=== PATIENT | female | born 1930 | race Caucasian/White ===

== ENCOUNTER → 2018-05-24 | Outpatient (CLI) | payer MEDICARE, OTHER ==
[~2018-05-24] MED LIST: AMBIEN 5 MG TABL5 M1 PO; ASPIRIN EC81 M1 PO; FISH OIL 1,0001 EAC5 PO; ISOSORBIDE DINI30 MG PO; LEVOTHROID88 MCG PO; LOPRESSOR PO; METFORMIN PO; NEURONTIN 300M300 M2 PO; SIMVASTATIN40 MG PO; ZETIA10 MG PO
== END ==
LOC: M.CT 12:19
DX: S32.040A Wedge compression fracture of fourth lumbar vertebra, initial encounter for closed fracture (principal); M48.061 Spinal stenosis, lumbar region without neurogenic claudication; X58.XXXA Exposure to other specified factors, initial encounter; Y93.89 Activity, other specified; Y92.89 Other specified places as the place of occurrence of the external cause; Y99.8 Other external cause status

== ENCOUNTER → 2018-11-29 | Outpatient (CLI) | payer MEDICARE, OTHER ==
[2018-11-29 11:58] LABS: CREATININE 1.1 mg/dL (0.6-1.3)
== END ==
LOC: M.CT 11:00
PROVIDERS: Family Medicine
DX: N20.0 Calculus of kidney (principal); J98.11 Atelectasis